=== PATIENT | female | born 1990 | race Caucasian/White ===

== ENCOUNTER → 2018-09-26 | Outpatient (CLI) | payer BC ==
[2016-06-18 16:25] VITALS: BMI 32.9
[~2018-09-26] MED LIST: ACET-1718 PO; AMOX-556 PO; DOCU-416 PO; IBUP800T37 PO; LABE100T2 PO; NORG1TAB74 PO; PREN-161 PO
[2018-09-26 09:36] LABS: PLATELET COUNT, AUTOMATED 259 K/uL (150-450)
== END ==
LOC: LAB 08:23
PROVIDERS: ATTEND Obstetrics & Gynecology
DX: Z34.91 Encounter for supervision of normal pregnancy, unspecified, first trimester (principal)
CPT/HCPCS: 81001; 85025; 86592; 86703; 86762; 86850; 86900; 86901; 87088; 87340

== ENCOUNTER → 2018-10-03 | Outpatient (CLI) | payer BC ==
[2016-06-18 16:25] VITALS: BMI 32.9
[~2018-10-03] MED LIST changes: +FLU60SYR36 IM
== END ==
LOC: LAB 09:01
PROVIDERS: ATTEND Student in an Organized Health Care Education/Training Program
DX: Z11.3 Encounter for screening for infections with a predominantly sexual mode of transmission (principal); Z11.9 Encounter for screening for infectious and parasitic diseases, unspecified
CPT/HCPCS: 87491; 87591

== ENCOUNTER → 2019-02-13 | Outpatient (CLI) | payer BC ==
[2016-06-18 16:25] VITALS: BMI 32.9
[~2019-02-13] MED LIST changes: +DIPH-911 PO; +DIPH0.5D12 IM; +PYRI25TA18 PO
[2019-02-13 11:25] LABS: PLATELET COUNT, AUTOMATED 259 K/uL (150-450)
== END ==
LOC: LAB 09:00
PROVIDERS: ATTEND Student in an Organized Health Care Education/Training Program
DX: Z34.92 Encounter for supervision of normal pregnancy, unspecified, second trimester (principal)
CPT/HCPCS: 36415; 82950; 85025

== ENCOUNTER → 2019-04-11 | Outpatient (CLI) | payer BC ==
[2016-06-18 16:25] VITALS: BMI 32.9
[~2019-04-11] MED LIST changes: -DIPH0.5D12 IM; +DIPH0.5S2 IM
== END ==
LOC: LAB 13:09
PROVIDERS: ATTEND Student in an Organized Health Care Education/Training Program
DX: Z36.85 Encounter for antenatal screening for Streptococcus B (principal)
CPT/HCPCS: 87081

== ENCOUNTER 2019-04-25 04:20 | Inpatient (IN) | payer BC ==
[~2019-04-25] VITALS: Ht 167.6 cm; Wt 87.1 kg
[2019-04-25] MEDS ORDERED: FAMOTIDINE(*) 20MG/50ML PREMIX 50 ML IVPB PRN (04:21)
[2019-04-25] MEDS ORDERED: LR(*) 1000 ML BAG 1,000 ML IV SCH (04:21)
[2019-04-25] MEDS ORDERED: OXYTOCIN 30 UNIT/NS 500 ML 500 ML IV PRN (04:21)
[2019-04-25] MEDS ORDERED: fentaNYL CITR 100 MCG/2 ML AMP IVP PRN (04:25)
[2019-04-25] MEDS ORDERED: FLUSH 10 ML SYR IVP PRN (04:25)
[2019-04-25] MEDS ORDERED: LIDOCAINE/SOD BICARB 8.4% SYR SC PRN (04:25)
[2019-04-25] MEDS ORDERED: LIDOCAINE 1% LOCAL 300 MG/30ML INJ PRN (04:25)
[2019-04-25 04:50] VITALS: BP 125/69; Ht 167.6 cm; Wt 87.1 kg
[2019-04-25 04:55] LABS: PLATELET COUNT, AUTOMATED 243 K/uL (150-450)
[2019-04-25] MEDS ORDERED: MISOPROSTOL 200 MCG TAB ONE (05:21)
--- NOTE | 2019-04-25 05:32 | History & Physical ---
History of Present Illness Age of Patient: 29 : 2 Para or TPAL: 1 EDC per LMP: May 09, 2019 Estimated Gestational Age: 38.0 Chief Complaint Contractions. History of Present Illness Pt is a 29 y/o @ 38-0/7 wga who presents to L&D with a chief complaint of painful contractions. Reports contractions started around midnight and progressively got stronger and closer together. Pt denies any loss of amniotic fluid. Good movement. History Patient's Blood Type: A Positive Rubella Status: Immune Group B Strep Screen: Negative Obstetrical History: X 1 Hx of Pre-Eclampsia Past Medical History: Non contributory. 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 , present and supportive. No noxious habits. Denies EtoH/Tobacco/Rec drugs Family History: FH: diabetes mellitus maternal grandfather FH: heart disease maternal grandfather FHx: uterine cancer maternal grandmother Med Rec Home Meds Reported Medications Pyridoxine Hcl (VITAMIN B-6) 25 Mg Tablet, 25 MG PO 10/31/18 Diphenhydramine Hcl (UNISOM) 50 Mg Capsule, 50 MG PO, CAPSULE 10/31/18 Vits #93/Iron Fum/Fa ( FORMULA TABLET) 1 Each Tablet, 1 EACH PO DAILY 06/21/16 Review of Systems All Systems Reviewed/Normal: Yes, Except as Noted Constitutional: No Fever, No Weight Loss, No Weight Gain, No Chills, No Night Sweats, No Other Neurological: No Syncope, No Confusion, No Weakness, No Dizziness, No Slurred Speech, No Other Eyes: No Vision Change, No Loss of Vision, No Photophobia, No Other ENT: No Hearing Loss, No Sinus Congestion, No Sore Throat, No Ear Ache, No Tinnitus, No Other Cardiovascular: No Chest Pain, No Palpitations, No Orthostatic Hypotension, No Other Respiratory: No Shortness of Breath, No Cough, No Wheezing, No Other Gastrointestinal: No Nausea, No Vomiting, No Diarrhea, No Dysphagia, No Constipation, No Early Satiety, No Hematemesis, No Hematochezia, No Melena, No Abdominal Pain, No Other Genitourinary: No Dysuria, No Hematuria, No Urinary Incontinence, No Other Musculoskeletal: No Pain, No Sprain, No Strain, No Impaired Mobility, No Other Psychiatric: No Depression, No Anxiety, No Other Exam General Exam General Apperance: Alert/Awake/No Acute Distress Neuro: No Gross deficits Eyes: Normal Extraocular Movement & Vison, PERRLA ENT: Normal Cardiovascular: Regular Rate and Rhythm Respiratory: No Respiratory Distress, Clear to Auscultation Abdomen: Soft, Non-Tender, Non-Distended, Gravid - Non-Tender : Normal Musculoskeletal: No Weakness/Pain Extremities: No Cyanosis,Clubbing or Edema Integumentary: Skin Intact without Lesions or Rash Psychological: Alert & Oriented X3, Appropriate Mood & Affect Vaginal Discharge/Fluid?: Clear Fluid (SROM at 10 cm) Cervical Dialation: 10 Cervical Effacement (%): 100 Cervical Consistency: Soft Cervical Position: Anterior Station: -2 Presentation: Vertex Uterine Contractions(Q min): 3 Uterine Contraction Strength: Moderate Fetus Feeling Movement?: Yes Heart Tones: 125 Heart Tone Variabilty: Moderate FHT Accelerations: Present FHT Decelerations: None FHT Category: I Medical Decision Making Data Points Result Diagram: 04/25/19 0438 Pre-Admit Course Medical Record Review: Yes VTE Prophylasis: Adult Deep Vein Thrombosis/Pulmonary: No Assessment and Plan [employer] Assessment: Stable Problems: (1) 38 weeks gestation of (2) Active labor at term Assessment & Plan: Pt presented to L&D and quickly delivered. MERRICK GONZALES DO Apr 25, 2019 05:32
[2019-04-25] MEDS ORDERED: HYDROCORTISONE 2.5% CR 30GM TB PR PRN (05:35)
[2019-04-25] MEDS ORDERED: MAGNESIUM HYDROXIDE* 30ML UDCP PO PRN (05:35)
[2019-04-25] MEDS ORDERED: ACETAMINOPHEN 325 MG TAB PO PRN (05:35)
[2019-04-25] MEDS ORDERED: INFLUENZA VIRUS VAC 0.5ML SYR IM ONLY ONE (05:35)
[2019-04-25] MEDS ORDERED: GLYCERIN/WITCH HAZEL LEAF 1 PK TP PRN (05:35)
[2019-04-25] MEDS ORDERED: MISOPROSTOL 200 MCG TAB PO ONE (05:35)
[2019-04-25] MEDS ORDERED: BENZOCAINE 20% 60 ML BTL TP PRN (05:35)
[2019-04-25] MEDS ORDERED: MEASLES,MUMP,RUBELLA VAC 0.5ML SUBQ ONE (05:35)
[2019-04-25] MEDS ORDERED: LANOLIN OINT 7 GM TUBE TP PRN (05:35)
[2019-04-25] MEDS ORDERED: DIPHTH/TETANUS/ACEL. PERTUSSIS IM ONLY ONE (05:35)
--- NOTE | 2019-04-25 05:40 | OB Delivery Note ---
Delivery Note Vaginal Delivery Type: Spont. Vaginal Delivery Delivery Date: Apr 25, 2019 Delivery Time: 04:47 Estimated Gestational Age(wks): 38.0 Length of Labor Stage I (hrs): 5 Length of Labor Stage II (hrs): 0.1 Labor Stage III (minutes): 8 Delivery Anesthesia: Local (Repair only) Infant Sex: Female Infant Weight (gms): 3460 (7#10oz) [place] Apgars: 1 Minute (9), 5 Minute (9) Repair Needed: 2nd Degree Estimated Blood Loss: 500 Lieutenant General in Attendence: MERRICK Holland DO Apr 25, 2019 05:40
--- NOTE | 2019-04-25 06:15 | DELIVERY NOTE ---
DELIVERY DATE: April 25, 2019 SURGEON: Albert Gupta DO ANESTHESIA: 10 mL of 1% lidocaine for repair only. PREOPERATIVE DIAGNOSES 1. A 29-year-old 2, para 1, at 38-0/7 weeks' gestation. 2. Labor. POSTOPERATIVE DIAGNOSES 1. A 29-year-old 2, para 1, at 38-0/7 weeks' gestation. 2. Labor. 3. Delivered. PROCEDURE PERFORMED Spontaneous vaginal delivery with repair of second-degree midline laceration. FINDINGS Live-born female at 0447 of 04/25/2019 with Apgars of 9 and 9, weighing 3460 g, 7 pounds 10 ounces, three-vessel cord, intact placenta, over a second- degree midline laceration. ESTIMATED BLOOD LOSS 500 mL. PATHOLOGY None. COMPLICATIONS None known. CONDITION Stable x2. Mother and to remain in the LDRP. COUNTS Correct for all needles, laps, sponges, and instruments. LABOR SUMMARY Patient is a 29-year-old 2, para 1, at 38-0/7 weeks' gestation, who presents to Labor and Delivery with a chief complaint of painful contractions. Shortly upon being admitted to Labor and Delivery, she was noted to be 8 to 9 cm, quickly progressed to complete, and had spontaneous rupture of amniotic membranes and felt the urge to push. At this time, the delivery team was called and assembled. DELIVERY SUMMARY Patient was placed in the dorsal lithotomy position. She was prepped and draped in the usual sterile manner. Upon maternal pushing, the infant's head delivered in a controlled manner, followed by the anterior shoulder with gentle downward motion, posterior shoulder with gentle upward motion, and the remainder of the infant's body delivered spontaneously. Mouth and nose were bulb-suctioned. The infant was placed on maternal abdomen. After approximately two minutes, the cord was clamped x2 and cut by the infant's father. remained on maternal abdomen for a short time to be vigorously cleaned by the nursing staff. Cord blood gas was obtained. Placenta delivered spontaneously with gentle cord traction. Oxytocin was infused to help the uterine tone. Uterus was massaged and deemed firm. Next, upon inspection of the perineum, vagina, cervix, and labia, it was noted that there was a second-degree midline laceration. This was repaired with a 3-0 Vicryl after 10 mL of 1% lidocaine for local. With repair complete, the patient was inspected. Wound was hemostatic. At this point, the labor bed was reassembled and the mother and were allowed to continue to yarbrough. BRITNEY
[2019-04-25] MEDS ORDERED: LR(*) 1000 ML BAG 1,000 ML ONE (07:16)
[2019-04-25 07:30] VITALS: BP 115/68
[2019-04-25] MEDS ORDERED: LIDOCAINE 1% LOCAL 300 MG/30ML 30 ML ONE (07:30)
[2019-04-25] MEDS: IBUPROFEN 800 MG TAB PO SCH ×2 (09:01→17:10)
[2019-04-25] MEDS: DOCUSATE CALCIUM 240 MG CAP PO SCH ×2 (09:01→20:46)
[2019-04-25 11:51] VITALS: BP 104/65
[2019-04-25] MEDS: HYDROmorphone HCL 2 MG TAB PO PRN ×2 (12:02→21:31)
[2019-04-25 19:29] VITALS: BP 106/67
[2019-04-25 23:39] VITALS: BP 99/55
[2019-04-26] MEDS: IBUPROFEN 800 MG TAB PO SCH ×2 (01:00→09:02)
[2019-04-26 03:52] VITALS: BP 107/67
[2019-04-26 09:00] VITALS: BP 105/74
[2019-04-26] MEDS: DOCUSATE CALCIUM 240 MG CAP PO SCH (09:02)
[2019-04-26] MEDS ORDERED: IBUP800T37 PO (09:25)
--- NOTE | 2019-04-26 09:32 | OB/GYN Discharge Summary ---
Discharge Summary Reason for Hosp/Final Diag: (1) 38 weeks gestation of Status: Resolved (2) Active labor at term Status: Resolved (3) (normal spontaneous vaginal delivery) Onset Date: ~ 04/25/2019 Status: Resolved (4) Second degree laceration of perineum, delivered, current hospitalization Onset Date: ~ 04/25/2019 Status: Acute Hospital Course & Plan: Reviewed signs and symptoms of infection and dehiscence with patient. Encouraged use of the bottle while urinating and having dry. Using Tucks pads and taking ibuprofen for pain. We did discuss the use of sitz baths at home if she would like. (5) care and examination immediately after delivery Onset Date: ~ 04/25/2019 Status: Acute Hospital Course & Plan: Admission Diagnoses: Active labor at term Reason for Hospitalization: Labor, normal vaginal delivery and care Procedures Performed: laceration repair Delivery Type: Normal vaginal delivery Hospital Course: Patient is a 29-year-old 2, para 1, at 38-0/7 weeks' gestation, who presents to Labor and Delivery with a chief complaint of painful contractions. Shortly upon being admitted to Labor and Delivery, she was noted to be 8 to 9 cm, quickly progressed to complete, and had spontaneous rupture of amniotic membranes and felt the urge to push. At this time, the delivery team was called and assembled. Delivery Information: See delivery note Estimated blood loss: Episiotomy: none Laceration: Second degree laceration Pain Management: none Subjective: Patient is feeling well today without complaints. She does complain of some perineal and rectal pain that is tolerating this with ibuprofen. She is passing gas with no bowel movement yet. She denies headaches, vision changes, right upper quadrant pain. She reports that breast-feeding is going well without pain and a good latch. Abdominal pain: None Perineal pain: none Vaginal bleeding: minimal to scant without clots Flatus: yes UTI symptoms: Denies Feeding modality: Breast Problems with breast feeding: None Bowel movement: no Ambulating: yes Preeclampsia symptoms: denies Nausea/vomiting: none experience: Very satisfied control: She and her are discussing vasectomy, does not want the progesterone only pill but may consider the IUD. We will discuss at 2 weeks Objective Exam: Vitals: Normotensive and afebrile Breasts: Soft, nipples everted, no cracks or bleeding, positive colostrum Abdomen: Fundus firm, one below the U Perineum: Healing well with good approximation, slight swelling Lochia: Scant bleeding without clots Extremities: no bilateral calf tenderness, redness or swelling Disposition: Patient discharged to home in medically stable condition. No Known Allergies Medication Instructions Given to the Patient at Discharge: Take Ibuprofen 800mg PO TID for 5-7 days as needed Follow-up Appointment: 2 & 6 weeks with Merrick Gupta DO Activity/Restrictions: Pelvic rest; nothing in vagina for six weeks. Return Precautions: Patient instructed to call the clinic or return to hospital for fever > 101 degree F; chills; severe nausea or vomiting; inability to to lerate anything by mouth for > 24 hours; increasingly severe abdominal/pelvic pain; foul smelling vaginal discharge; vaginal bleeding > 1 pad per hour for > 2 hours; separation, drainage, or redness of incision or laceration site. Reviewed depression and pre-eclampsia s/s and when to seek care. [place] Vital Signs Vital Signs Date Time Temp Pulse Resp B/P (MAP) Pulse Ox O2 Delivery O2 Flow Rate FiO2 04/26/19 03:52 97.7 50 18 107/67 (80) Room Air Weight (Pounds): 192 Result Diagram: 04/26/19 0638 Condition: Improved Discharge: Home Home Meds Active Scripts Ibuprofen (IBUPROFEN) 800 Mg Tablet, 800 MG PO Q8H, #20 TAB 0 Refills Prov:DARYL MINER CNM 04/26/19 Reported Medications Pyridoxine Hcl (VITAMIN B-6) 25 Mg Tablet, 25 MG PO 10/31/18 Diphenhydramine Hcl (UNISOM) 50 Mg Capsule, 50 MG PO, CAPSULE 10/31/18 Vits #93/Iron Fum/Fa ( FORMULA TABLET) 1 Each Tablet, 1 EACH PO DAILY 06/21/16 Follow up Referrals: ADJUNCT PHYSICS INSTRUCTOR @ [facility] with MERRICK GUPTA DO Discharge Diet: As Tolerates, Resume Prior Admit Diet, Increase Fluid Intake Discharge Activity: As Tolerates, Bed Rest, Pelvic Rest DARYL MINER CNM Apr 26, 2019 09:32
== END 2019-04-26 12:45 | disposition home or self-care (01) | DRG 807 ==
LOC: OB 04:20
PROVIDERS: ADMIT Student in an Organized Health Care Education/Training Program; ATTEND Student in an Organized Health Care Education/Training Program
PROC: 10E0XZZ Delivery of Products of Conception, External Approach (ICD-10-PCS; principal; 2019-04-25)
PROC: 0KQM0ZZ Repair Perineum Muscle, Open Approach (ICD-10-PCS; 2019-04-25)
DX: O62.3 Precipitate labor (principal); Z37.0 Single live birth; O70.1 Second degree perineal laceration during delivery; Z3A.38 38 weeks gestation of pregnancy
CPT/HCPCS: 36415; 85025; 85027; 86850; 86900; 86901; J2001; J7120